=== PATIENT | female | born 1980 | race African-American/Black ===

== ENCOUNTER → 2020-05-17 | Day surgery (SDC) | payer BC | END | disposition home or self-care (01) | LOC: JRADIR 09:38 | PROVIDERS: ATTEND Internal Medicine Endocrinology, Diabetes & Metabolism | PROC: 0G9H3ZX Drainage of Right Thyroid Gland Lobe, Percutaneous Approach, Diagnostic (ICD-10-PCS; principal; 2020-05-17) | DX: E04.1 Nontoxic single thyroid nodule (principal) | CPT/HCPCS: 76942; 88173; 88305-TC ==

== ENCOUNTER 2021-05-16 04:24 | Day surgery (SDC) | payer BC, OTHER ==
[2021-05-13 15:55] VITALS: BMI 31.9
[2021-05-16 13:53] LABS: HEMATOCRIT 38.4 % (32.4-45.2); HEMOGLOBIN 12.7 GM/dL (10.7-15.3); MCH 28.4 pg (25.7-33.7); MEAN CELL VOLUME 86.2 fl (80-96); MEAN PLT VOLUME 7.4 fl (7.5-11.1); PLATELET COUNT 281 10^3/uL (134-434); RBC 4.45 M/mm3 (3.60-5.2); RDW 14.2 % (11.6-15.6); WHITE BLOOD COUNT 6.3 K/mm3 (4.0-10.0)
[2021-05-16 14:21] LABS: CREATININE 1.1 mg/dL (0.55-1.3)
[2021-05-16] MEDS ORDERED: SUCCINYLCHOLINE CHLORIDE 200 MG/10 ML SYRINGE ONE (14:52)
[2021-05-16] MEDS ORDERED: PROPOFOL 20 ML ONE ×3 (15:21→16:05)
[2021-05-16] MEDS ORDERED: LIDOCAINE HCL/PF 2% SDV 5ML VIAL ONE ×2 (15:23→16:04)
[2021-05-16] MEDS ORDERED: MIDAZOLAM HCL 2 MG/2 ML SINGLE DOSE VIAL ONE ×2 (15:28→16:06)
[2021-05-16] MEDS ORDERED: oxyCODONE HCL 5 MG TABLET PO PRN ×2 (15:57)
[2021-05-16] MEDS ORDERED: ONDANSETRON 4 MG/2 ML VIAL IVPUSH PRN (15:57)
[2021-05-16] MEDS ORDERED: LACTATED RINGERS SOLUTION 1,000 ML IV SCH ×2 (16:00→18:15)
[2021-05-16] MEDS ORDERED: LIDOCAINE HCL 2% JELLY (5 ML/TUBE) ONE (16:04)
[2021-05-16] MEDS ORDERED: ceFAZolin SODIUM 1 GM VIAL ONE ×2 (16:04→16:31)
[2021-05-16] MEDS ORDERED: GLYCOPYRROLATE 0.2 MG/1 ML VIAL ONE (16:04)
[2021-05-16] MEDS ORDERED: ROCURONIUM BROMIDE 50 MG/5 ML SYRINGE ONE ×2 (16:05)
[2021-05-16] MEDS ORDERED: NEOSTIGMINE METHYLSULFATE 0.5 MG/ML - 10 ML MDV ONE ×2 (16:06)
[2021-05-16] MEDS ORDERED: LIDOCAINE 1%/EPI 1:100000 (20 ML MULTI DOSE VIAL) ONE (16:13)
[2021-05-16] MEDS ORDERED: ceFAZolin SODIUM 1 GM VIAL IVPB ONE (16:34)
[2021-05-16] MEDS ORDERED: LIDOCAINE 1%/EPI 1:100000 (20 ML MULTI DOSE VIAL) INF ONE (16:39)
[2021-05-16] MEDS ORDERED: MICROFIBRILLAR COLLAGEN 1 GM EACH TP ONE (17:21)
[2021-05-16] MEDS ORDERED: CALCITRIOL 0.25 MCG CAPSULE (FP) PO SCH (18:15)
[2021-05-16] MEDS ORDERED: CALCIUM CARBONATE 650 MG TABLET PO SCH (18:15)
[2021-05-16] MEDS ORDERED: ONDANSETRON 4 MG/2 ML VIAL ONE ×2 (19:10→19:42)
[2021-05-16] MEDS ORDERED: ONDANSETRON 4 MG/2 ML VIAL IVPUSH ONE ×2 (19:12→19:44)
[2021-05-16 21:04] VITALS: BP 124/73; PULSE 97; TEMP 98
== END 2021-05-16 22:02 | disposition home or self-care (01) ==
LOC: JASU-SURG 04:24 → J5S 20:40 → JASU-SURG 22:02
PROVIDERS: ATTEND Surgery
PROC: 0GBJ0ZZ Excision of Thyroid Gland Isthmus, Open Approach (ICD-10-PCS; 2021-05-16)
PROC: 0GTK0ZZ Resection of Thyroid Gland, Open Approach (ICD-10-PCS; principal; 2021-05-16 15:30)
DX: E06.3 Autoimmune thyroiditis (principal); E04.2 Nontoxic multinodular goiter
CPT/HCPCS: 36415; 80048; 81025; 84703; 85027; 88307-TC; 94760